=== PATIENT | female | born 1935 | race Hispanic/Latino ===

== ENCOUNTER 2017-09-20 16:57 | Inpatient (IN) | payer MEDICARE ==
[~2017-09-20] VITALS: Ht 152.4 cm; Wt 72.1 kg
[~2017-09-20 16:57] MED LIST: APIDRA SOL100 UNIT/1 SC; CEFDINIR300 MG PO; CHLORZOXAZONE500 MG PO; GABAPENTIN100 MG PO; LANTUS 3ML100 UNITS/ SC; LANTUS 3ML100 UNITS/ SQ; LEVOTHYROXINE100 MC1 PO; LOSARTAN POTASS50 MG PO; NORCO 10-325 T1 EACH PO; NUCYNTA ER100 MG PO; PEPCID20 MG PO; PRAVASTATIN SOD40 MG PO; SENNA LAXATIVE8.6 MG PO; TIZANIDINE HCL2 MG PO
[2017-09-20 18:19] LABS: BILIRUBIN,URINE 3+ (NEGATIVE); KETONES,URINE 1+ (NEGATIVE); LEUKOCYTE ESTERASE ,URINE 2+ (NEGATIVE); URINE UROBILINOGEN 8 mg/dL (0.2 - 1)
--- NOTE | 2017-09-20 18:19 | Diagnostic Imaging Report ---
PROCEDURE: A single AP view of the chest performed at 1747 hrs. COMPARISON: Chest x-ray 09/18/15 INDICATIONS: CHEST PAIN FINDINGS: Lines/tubes: None. Lungs: Diffusely hyperinflated consistent with COPD. There is a new infiltrate in the inferior left lung. There is gaseous distention of the splenic flexure the colon that results in eventration of left diaphragm. No infiltrate in the right lung. The pulmonary vascular markings are prominent. Pleura: There is no pleural effusion or pneumothorax. Heart and mediastinum: The stable cardiomegaly. The pulmonary vascular markings are prominent. Bones: Diffusely demineralized. There is a treated compression deformity of lower thoracic spine/upper lumbar spine. No acute fractures or destructive lesions. IMPRESSION: New left lower lobe airspace opacity suggestive of pneumonia. COPD. Cardiomegaly and pulmonary vascular congestion. Dictated by: Rajeev Santos M.D. on 09/20/2017 at 18:27 Electronically approved by: Rajeev Santos M.D. on 09/20/2017 at 18:27
[2017-09-20] MEDS ORDERED: SUCCINYLCHOLINE 200 MG/10 ML SYR ONE (18:27)
[2017-09-20] MEDS ORDERED: MIDAZOLAM HCL 2 MG/2 ML VIAL ONE (18:27)
[2017-09-20] MEDS ORDERED: ETOMIDATE 2 MG/ML 10 ML INJ IV ONE (18:27)
[2017-09-20 18:31] LABS: BASOPHILS % 0.5 % (0.0-1.0); HEMATOCRIT 41.3 % (34.2-44.1); HEMOGLOBIN 13.3 g/dL (12.0-16.0); LYMPHOCYTES # (AUTO) 0.8 (1.0-3.2); LYMPHOCYTES % 9.7 % (18.0-39.1); MEAN CORPUSCULAR HEMOGLOBIN 28.4 pg (28-32); MEAN CORPUSCULAR HGB CONC 32.2 g/dL (31-35); MEAN CORPUSCULAR VOLUME 88.2 fL (81-99); MONOCYTES # (AUTO) 0.6 (0.2-0.8); MONOCYTES % 7.9 % (4.4-11.3); NEUTROPHILS # (AUTO) 6.4 (2.1-6.9); NEUTROPHILS % 81.5 % (38.7-80.0); PLATELET COUNT 149 x10e3/uL (140-360); RED BLOOD COUNT 4.68 x10e6/uL (3.6-5.1); RED CELL DISTRIBUTION WIDTH 13.7 % (11.7-14.4)
[2017-09-20 18:37] LABS: CLARITY,URINE CLOUDY (CLEAR); COLOR,URINE AMBER (YELLOW); NITRITE,URINE POSITIVE (NEGATIVE); PROTEIN,URINE DIPSTICK 2+ (NEGATIVE)
[2017-09-20 18:40] LABS: INR 0.98; PROTHROMBIN TIME 13.5 seconds (11.9-14.5)
[2017-09-20 18:41] LABS: PARTIAL THROMBOPLASTIN TIME 36.5 seconds (23.8-35.5)
[2017-09-20 18:51] LABS: BACTERIA,URINE MODERATE /HPF; EPITHELIAL CELLS,URINE MODERATE /LPF
[2017-09-20 19:22] LABS: ALBUMIN 3.1 g/dL (3.5-5.0); ALBUMIN/GLOBULIN RATIO 0.8 (0.8-2.0); ANION GAP 31.4 mmol/L (8-16); CALCIUM 8.2 mg/dL (8.4-10.2); CREATININE, SERUM 2.03 mg/dL (0.57-1.11); POTASSIUM 4.4 mmol/L (3.5-5.1)
[2017-09-20 19:29] LABS: CREATINE KINASE MB 3.3 ng/mL (0.00-5.00); TROPONIN I 0.042 ng/mL (0-0.300)
[2017-09-20] MEDS ORDERED: AZITHROMYCIN 500MG/NS 250 ML 250 ML IV STA (23:34)
[2017-09-20] MEDS ORDERED: CEFTRIAXONE SOD 1 GM VIAL IV STA (23:34)
[2017-09-20] MEDS ORDERED: INSULIN DETEMIR 100 UNIT/ML PEN SQ PRN (23:45)
[2017-09-20] MEDS ORDERED: INSULIN REGULAR, HUMAN 3ML VL 100 UNIT in SODIUM CHLORIDE 0.9% 99 ML IV SCH ×2 (23:45)
[2017-09-20] MEDS ORDERED: MAGNESIUM SULF 1GRAM/DEXTROSE 100 ML IV PRN (23:45)
[2017-09-20] MEDS ORDERED: POTASSIUM CHLORIDE 20MEQ/100ML 200 ML IV PRN (23:45)
[2017-09-20] MEDS: DEXTROSE 5%/0.45% SOD CHL 1,000 ML IV SCH (23:56)
[2017-09-21] VITALS (46 sets, daily range): BP systolic 53–125; BP diastolic 30–77
[2017-09-21] MEDS ORDERED: AZITHROMYCIN 500MG/SOD CHL 0.9% 250ML BAG IV SCH
[2017-09-21] MEDS ORDERED: ACETAMINOPHEN 325 MG TAB PO PRN
[2017-09-21] MEDS ORDERED: SODIUM CHLORIDE 0.9% 50ML 100 ML ONE (00:09)
[2017-09-21] MEDS ORDERED: INSULIN REGULAR, HUMAN 100 UNIT/1 ML 3ML VIAL ONE (00:09)
[2017-09-21 00:23] LABS: ANION GAP 33.3 mmol/L (8-16); CALCIUM 8.6 mg/dL (8.4-10.2); CREATININE, SERUM 2.46 mg/dL (0.57-1.11); MAGNESIUM 1.9 MG/DL (1.3-2.1); POTASSIUM 5.3 mmol/L (3.5-5.1)
[2017-09-21] MEDS ORDERED: LORAZEPAM INJ 2 MG/ML VIAL ONE (00:41)
[2017-09-21] MEDS ORDERED: LORAZEPAM INJ 2 MG/ML VIAL IV ONE (00:45)
[2017-09-21] MEDS: CEFTRIAXONE SOD 1 GM VIAL IV SCH (00:54)
[2017-09-21] MEDS: SODIUM CHLORIDE 0.9% 1000ML 1,000 ML IV SCH ×5 (00:54→23:02)
[2017-09-21] MEDS: ALBUTEROL SULF 0.083% NEB SOLN 3 ML NEB NEB SCH ×4 (01:05→16:45)
[2017-09-21] MEDS: IPRATROPIUM BROMIDE 0.02% 2.5 ML NEB NEB SCH ×4 (01:05→19:00)
[2017-09-21] MEDS ORDERED: ASPIRIN 81 MG CHEW TAB PO ONE (02:45)
[2017-09-21] MEDS ORDERED: SODIUM CHLORIDE 0.9% 1000ML 1,000 ML IV ONE ×3 (02:45→18:15)
[2017-09-21 05:12] LABS: CALCIUM 7.7 mg/dL (8.4-10.2); CREATININE, SERUM 2.19 mg/dL (0.57-1.11); MAGNESIUM 1.6 MG/DL (1.3-2.1)
[2017-09-21 05:17] LABS: CREATINE KINASE MB 4.9 ng/mL (0.00-5.00); TROPONIN I 0.034 ng/mL (0-0.300)
[2017-09-21] MEDS ORDERED: POTASSIUM CHLORIDE 20MEQ/100ML 200 ML IV PRN (06:30)
[2017-09-21] MEDS ORDERED: MAGNESIUM SULF 1GRAM/DEXTROSE 100 ML IV PRN (06:30)
[2017-09-21] MEDS: DEXTROSE 5%/0.45% SOD CHL 1,000 ML IV SCH (09:45)
[2017-09-21 11:35] LABS: BASOPHILS % 0.3 % (0.0-1.0); HEMATOCRIT 37.2 % (34.2-44.1); HEMOGLOBIN 12.5 g/dL (12.0-16.0); LYMPHOCYTES % 10.4 % (18.0-39.1); MEAN CORPUSCULAR HEMOGLOBIN 28.7 pg (28-32); MEAN CORPUSCULAR HGB CONC 33.6 g/dL (31-35); MEAN CORPUSCULAR VOLUME 85.3 fL (81-99); MONOCYTES # (AUTO) 0.9 (0.2-0.8); MONOCYTES % 9.8 % (4.4-11.3); NEUTROPHILS # (AUTO) 7.3 (2.1-6.9); NEUTROPHILS % 79.2 % (38.7-80.0); PLATELET COUNT 130 x10e3/uL (140-360); RED BLOOD COUNT 4.36 x10e6/uL (3.6-5.1)
[2017-09-21 12:03] LABS: CREATINE KINASE MB 4.1 ng/mL (0.00-5.00); TROPONIN I 0.046 ng/mL (0-0.300)
[2017-09-21 12:38] LABS: ANION GAP 15.5 mmol/L (8-16); CALCIUM 7.5 mg/dL (8.4-10.2); CREATININE, SERUM 1.64 mg/dL (0.57-1.11); MAGNESIUM 1.7 MG/DL (1.3-2.1); POTASSIUM 3.5 mmol/L (3.5-5.1)
--- NOTE | 2017-09-21 12:59 | History and Physical ---
REASON FOR ADMISSION: 1. DKA. 2. Pneumonia, left sided. 3. UTI. HISTORY OF PRESENT ILLNESS: The patient is an 82-year-old lady who presented to the emergency room critically ill with . She was noted to be in DKA, pneumonia and urinary tract infection. She was being admitted to the ICU for further evaluation from the emergency room. PAST MEDICAL HISTORY: Diabetes, chronic kidney disease, stage 3. MEDICATIONS: See MAR. ALLERGIES: NONE. SOCIAL HISTORY: Nonsmoker and nondrinker. FAMILY HISTORY: Noncontributory. PHYSICAL EXAMINATION VITAL SIGNS: Temperature 98.6, pulse 96, oxygen saturation 100%, respiratory rate 18, blood pressure 126/74. GENERAL: She is very ill-appearing lady lying in bed. Does not communicate very well. NECK: Supple. CARDIOVASCULAR: Regular rate and rhythm. LUNGS: Clear to auscultation bilaterally ABDOMEN: Soft. Good bowel sounds, nontender. No peritoneal signs. EXTREMITIES: No clubbing or cyanosis. NEUROLOGIC: Moves all extremities x4. ASSESSMENT AND PLAN 1. Pneumonia on the left side. Continue with antibiotics. 2. Diabetic ketoacidosis. Continue with IV insulin. Will consult endocrinology. 3. Chronic kidney disease, stage 3. Continue with IV fluids. 4. Urinary tract infection. Continue with antibiotics and await for culture data. Please see hospital chart for full details. TATE FORREST MD Job#: [id number]
[2017-09-21] MEDS ORDERED: INSULIN REGULAR, HUMAN 3ML VL 100 UNIT in SODIUM CHLORIDE 0.45% 100 ML 100 ML IV SCH ×4 (13:32→14:34)
[2017-09-21] MEDS ORDERED: SODIUM CHLORIDE 0.9% 1000ML 1,000 ML IV SCH (13:45)
[2017-09-21] MEDS ORDERED: DEXTROSE 50% SYRINGE 50 ML IV PRN ×2 (13:45→14:45)
[2017-09-21 15:33] LABS: CHOL/HDL RATIO 2.3 (3.0-3.6)
[2017-09-21 15:53] LABS: FREE T4 (FREE THYROXINE) 0.95 ng/dL (0.8-1.8); THYROID STIMULATING HORMONE 1.633 uIU/mL (0.350-4.940)
[2017-09-21 17:42] LABS: ABG BASE EXCESS 13.8 mmol/L (-2 - 3); ABG HCO3 -13 mmol/L (23-28); ABG PCO2 29 mmHg (41-51); ABG PH 7.29 (7.31-7.41); ABG PO2 64 mmHg (80-105)
[2017-09-21] MEDS ORDERED: SODIUM BICARBONATE 8.4% SYRING 50 ML ONE (18:05)
[2017-09-21] MEDS ORDERED: SODIUM BICARBONATE 8.4% INJ 50 ML SYR IV ONE (18:15)
[2017-09-21] MEDS: ACETAMINOPHEN 1000 MG/100 ML IV PRN (19:30)
[2017-09-21] MEDS ORDERED: MIDAZOLAM HCL 25 MG in SODIUM CHLORIDE 0.9% 50ML 45 ML IV PRN (20:00)
[2017-09-21] MEDS: VANCOMYCIN 500MG/NS 0.9% 100ML 100 ML IV SCH (20:00)
[2017-09-21] MEDS ORDERED: MIDAZOLAM HCL 2 MG/2 ML VIAL ONE (20:11)
--- NOTE | 2017-09-21 20:56 | Diagnostic Imaging Report ---
EXAMINATION: CHEST SINGLE (PORTABLE) INDICATION: Intubation. COMPARISON: 09/18/2015 FINDINGS: TUBES and LINES: Interval placement of endotracheal, nasogastric tubes in good position. LUNGS: Lungs are not well inflated. Diffuse central vascular interstitial and alveolar edema. There is mild prominence of the central pulmonary vasculature, consistent with pulmonary venous congestion. PLEURA: Small left pleural effusion. HEART AND MEDIASTINUM: Cardiac size is moderately enlarged. There are atherosclerotic calcifications within the aorta. BONES AND SOFT TISSUES: No acute osseous lesion. Evidence of prior vertebroplasty at the lower thoracic spine Soft tissues are unremarkable. UPPER ABDOMEN: No free air under the diaphragm. IMPRESSION: Findings are consistent with pulmonary edema and a small left pleural effusion, most likely cardiogenic. Endotracheal and nasogastric tubes are in good position Signed by: Dr. Kris Sabillon M.D. on 09/21/2017 8:53 PM
[2017-09-21] MEDS ORDERED: NOREPINEPHRINE BITARTRATE/ NS 250 ML IV PRN (21:00)
[2017-09-21] MEDS: HEPARIN SOD (PORCINE) 5,000 UNIT/ML VIAL SC SCH (21:00)
[2017-09-21] MEDS: SODIUM CHLORIDE 0.9% 250ML IRRIG IR SCH (21:15)
[2017-09-21] MEDS ORDERED: LIDOCAINE HCL 2% LOCAL 20 ML VIAL ONE (22:00)
[2017-09-21] MEDS ORDERED: HEPARIN SOD (PORCINE) 1000 UNIT/ML 30ML ONE (22:00)
[2017-09-21] MEDS ORDERED: HEPARIN SOD/SOD CHLORIDE 1,000 ML ONE (22:00)
[2017-09-21] MEDS: SODIUM CHLORIDE 0.9% IV SCH (22:57)
[2017-09-21] MEDS: SODIUM BICARBONATE 8.4% IV SCH (22:57)
[2017-09-21] MEDS ORDERED: SODIUM CHLORIDE 0.9% 250ML 250 ML ONE (23:24)
[2017-09-21] MEDS: AZITHROMYCIN 500MG/NS 250 ML 250 ML IV SCH (23:26)
[2017-09-22] VITALS (122 sets, daily range): BP systolic 50–136; BP diastolic 28–87
[2017-09-22] MEDS: CEFTRIAXONE SOD 1 GM VIAL IV SCH
[2017-09-22] MEDS: ALBUTEROL SULF 0.083% NEB SOLN 3 ML NEB NEB SCH ×4 (01:00→20:11)
[2017-09-22] MEDS: IPRATROPIUM BROMIDE 0.02% 2.5 ML NEB NEB SCH ×4 (01:00→20:11)
[2017-09-22 01:05] LABS: BASOPHILS % 0.7 % (0.0-1.0); HEMATOCRIT 34.2 % (34.2-44.1); LYMPHOCYTES # (AUTO) 0.7 (1.0-3.2); LYMPHOCYTES % 23.5 % (18.0-39.1); MEAN CORPUSCULAR HEMOGLOBIN 28.8 pg (28-32); MEAN CORPUSCULAR HGB CONC 35.1 g/dL (31-35); MONOCYTES # (AUTO) 0.1 (0.2-0.8); MONOCYTES % 3.6 % (4.4-11.3); NEUTROPHILS % 70.8 % (38.7-80.0); PLATELET COUNT 128 x10e3/uL (140-360); RED BLOOD COUNT 4.17 x10e6/uL (3.6-5.1); RED CELL DISTRIBUTION WIDTH 12.9 % (11.7-14.4)
[2017-09-22 01:17] LABS: ALBUMIN 1.8 g/dL (3.5-5.0); ALBUMIN/GLOBULIN RATIO 0.7 (0.8-2.0); ANION GAP 13.1 mmol/L (8-16); CREATININE, SERUM 1.41 mg/dL (0.57-1.11); MAGNESIUM 1.4 MG/DL (1.3-2.1); PHOSPHORUS 2.9 MG/DL (2.3-4.7); POTASSIUM 3.1 mmol/L (3.5-5.1)
[2017-09-22 01:23] LABS: CALCIUM 6.9 mg/dL (8.4-10.2)
[2017-09-22] MEDS ORDERED: CALCIUM GLUCONATE 10% INJ 4.65 MEQ in SODIUM CHLORIDE 0.9% 50ML 50 ML IV ONE ×2 (01:45→06:30)
[2017-09-22 02:27] LABS: BAND NEUTROPHILS % (MANUAL) 29 %; LYMPHOCYTES % (MANUAL) 29 % (19-48); METAMYELOCYTES % (MANUAL) 4 % (0-0); MONOCYTES % (MANUAL) 4 % (3.4-9.0); NEUTROPHILS % (MANUAL) 34 % (40-74); RBC MORPHOLOGY COMMENT NORMAL
[2017-09-22 02:28] LABS: PLATELET ESTIMATE SLIGHTLY DECREASED; PLATELET MORPHOLOGY COMMENT NORMAL; TOXIC GRANULATION SLIGHT
[2017-09-22 02:30] LABS: CREATINE KINASE MB 6.6 ng/mL (0.00-5.00); TROPONIN I 0.067 ng/mL (0-0.300)
[2017-09-22] MEDS: ACETAMINOPHEN 1000 MG/100 ML IV PRN (04:44)
[2017-09-22] MEDS: SODIUM CHLORIDE 0.9% 250ML IRRIG IR SCH ×6 (05:15→20:00)
[2017-09-22] MEDS: SODIUM CHLORIDE 0.9% 1000ML 1,000 ML IV SCH ×3 (05:47→20:30)
[2017-09-22 05:58] LABS: BASOPHILS % 0.5 % (0.0-1.0); HEMATOCRIT 33.2 % (34.2-44.1); HEMOGLOBIN 11.6 g/dL (12.0-16.0); LYMPHOCYTES # (AUTO) 0.5 (1.0-3.2); LYMPHOCYTES % 25.2 % (18.0-39.1); MEAN CORPUSCULAR HEMOGLOBIN 28.9 pg (28-32); MEAN CORPUSCULAR HGB CONC 34.9 g/dL (31-35); MEAN CORPUSCULAR VOLUME 82.8 fL (81-99); MONOCYTES # (AUTO) 0.1 (0.2-0.8); MONOCYTES % 3.3 % (4.4-11.3); NEUTROPHILS # (AUTO) 1.3 (2.1-6.9); NEUTROPHILS % 58.4 % (38.7-80.0); PLATELET COUNT 118 x10e3/uL (140-360); RED BLOOD COUNT 4.01 x10e6/uL (3.6-5.1); RED CELL DISTRIBUTION WIDTH 12.4 % (11.7-14.4)
[2017-09-22] MEDS: SODIUM CHLORIDE 0.9% IV SCH ×2 (06:11→17:35)
[2017-09-22] MEDS: SODIUM BICARBONATE 8.4% IV SCH ×2 (06:11→17:35)
[2017-09-22 06:14] LABS: ANION GAP 14.4 mmol/L (8-16); CREATININE, SERUM 1.28 mg/dL (0.57-1.11); POTASSIUM 3.4 mmol/L (3.5-5.1)
[2017-09-22 06:16] LABS: CALCIUM 6.7 mg/dL (8.4-10.2)
--- NOTE | 2017-09-22 06:53 | Diagnostic Imaging Report ---
EXAMINATION: CHEST SINGLE (PORTABLE) INDICATION: Intubation COMPARISON: 09/21/2017 FINDINGS: TUBES and LINES: Endotracheal and nasogastric tubes are stable. Interval placement of right IJ central line catheter. LUNGS: Lungs are not well inflated. Worsening perihilar and bibasilar airspace opacities . PLEURA: No pleural effusion or pneumothorax. HEART AND MEDIASTINUM: Cardiac size is mildly enlarged. There are atherosclerotic calcifications within the aorta. BONES AND SOFT TISSUES: No acute osseous lesion. Soft tissues are unremarkable. UPPER ABDOMEN: No free air under the diaphragm. IMPRESSION: Findings are consistent with worsening pulmonary edema/ARDS. Superimposed pneumonia cannot be excluded Signed by: Dr. Kris Sabillon M.D. on 09/22/2017 6:50 AM
[2017-09-22] MEDS: VANCOMYCIN 500MG/NS 0.9% 100ML 100 ML IV SCH ×2 (08:00→20:00)
[2017-09-22 08:09] LABS: ABG HCO3 16 mmol/L (23-28); ABG PCO2 31 mmHg (41-51); ABG PH 7.32 (7.31-7.41); ABG PO2 102 mmHg (80-105)
[2017-09-22] MEDS ORDERED: SODIUM CHLORIDE 0.9% 1000ML 1,000 ML ONE (08:13)
[2017-09-22] MEDS ORDERED: AMIODARONE HCL 150 MG in DEXTROSE 5% 100ML 100 ML IV SCH (08:30)
[2017-09-22] MEDS ORDERED: AMIODARONE HCL 150 MG/100 ML BAG IV ONE (08:30)
[2017-09-22] MEDS ORDERED: AMIODARONE HCL 360MG 200 ML IV PRN (08:45)
[2017-09-22] MEDS: AMIODARONE HCL 900 MG in DEXTROSE 5 % 500ML BOTTLE 500 ML IV SCH (08:59)
[2017-09-22] MEDS ORDERED: SODIUM CHLORIDE 0.9% IV ONE (09:45)
[2017-09-22] MEDS ORDERED: CALCIUM CHLORIDE 10% IV ONE (09:45)
[2017-09-22] MEDS: OSELTAMIVIR PHOSPHATE 75 MG CAP PO SCH ×2 (10:00→18:05)
[2017-09-22] MEDS: PANTOPRAZOLE 40 MG 10ML VIAL IV SCH (10:00)
[2017-09-22] MEDS ORDERED: METOPROLOL TARTRATE INJ 1 MG/ML VIAL IV ONE (10:15)
[2017-09-22] MEDS ORDERED: METOPROLOL TARTRATE INJ 1 MG/ML VIAL ONE (10:15)
[2017-09-22] MEDS ORDERED: ESMOLOL HCL 2500MG/250 ML 250 ML IV PRN (10:15)
[2017-09-22] MEDS ORDERED: ESMOLOL HCL 2500MG/250 ML 250 ML ONE (10:20)
[2017-09-22 10:24] LABS: BAND NEUTROPHILS % (MANUAL) 51 %; LYMPHOCYTES % (MANUAL) 36 % (19-48); METAMYELOCYTES % (MANUAL) 1 % (0-0); MONOCYTES % (MANUAL) 8 % (3.4-9.0); NEUTROPHILS % (MANUAL) 4 % (40-74); PLATELET ESTIMATE ADEQUATE; PLATELET MORPHOLOGY COMMENT NORMAL; RBC MORPHOLOGY COMMENT NORMAL
[2017-09-22] MEDS ORDERED: POTASSIUM CHLORIDE 100 ML IV ONE (10:30)
[2017-09-22] MEDS: HEPARIN SOD (PORCINE) 5,000 UNIT/ML VIAL SC SCH ×2 (10:51→22:06)
[2017-09-22] MEDS ORDERED: VASOPRESSIN 100 UNIT in DEXTROSE 5% 100ML 100 ML IV PRN (11:00)
[2017-09-22] MEDS ORDERED: FENTANYL CITRATE INJ 2,000 MCG in SODIUM CHLORIDE 0.9% 250ML 210 ML IV PRN (11:45)
[2017-09-22] MEDS: DIGOXIN INJ 0.25 MG/ML 2 ML AMP IV SCH ×2 (12:28→18:05)
[2017-09-22] MEDS: SODIUM BICARBONATE 8.4% SYRING 50 ML in SODIUM CHLORIDE 0.45% 1,000 ML IV SCH (13:00)
--- NOTE | 2017-09-22 13:21 | Consultation ---
DATE OF CONSULTATION: September 21, 2017 ENDOCRINE CONSULTATION Thank you very much for referring this patient. This is an 82-year-old lady who was referred to me for evaluation of uncontrolled diabetes mellitus and diabetic ketoacidosis. Most of the history is available from the patient's son. Patient is a known diabetic for almost 10 to 15 years and has been taking insulin long acting and short acting insulin at home. The exact dose is not known. Patient had an upper respiratory tract infection, bronchitis. She reported to her doctor who found her blood sugar to be high and referred her to the emergency room. At the time of admission, her blood sugar was 762. Her anion gap was 26 and BUN and creatinine were 28 and 2.9. Patient also has history of arthritis and bronchitis. She also takes medication for hypertension. There is no history of coronary artery disease or congestive cardiac failure. PHYSICAL EXAMINATION: GENERAL: Today the patient is altered mental status. She is responding to the painful stimulus. VITAL SIGNS: Heart rate is around 78. Blood pressure is 110/70 mmHg. HEENT: Examination essentially unremarkable. Thyroid is palpable. She has bilateral bronchospasm. CARDIAC: Both 1st and 2nd heart sounds. There is no 3rd or 4th heart sound. Ejection sound is grade 2/6. 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 CLINICAL IMPRESSION: 1. Diabetes mellitus type 2 with diabetic ketoacidosis. 2. Bronchitis. 3. History of arthritis. 4. Hypertension. PLAN: The plan at this time is to do a hemoglobin A1c, thyroid function test. She has been started on insulin and IV fluids. Thanks again for referring this patient. I will be following this patient with you. Job#: [id number]
[2017-09-22] MEDS: PIPER-TAZ 3.375 GM 50 ML IV SCH ×2 (16:07→22:05)
--- NOTE | 2017-09-22 18:10 | Consultation ---
DATE OF CONSULTATION: September 21, 2017 She was admitted through the emergency room from doctor's office with aches over the last 3 days, low blood pressure in the doctor's office. She is currently on BiPAP but is not awake. She has history of diabetes, hypertension, hypothyroidism. HOME MEDICATIONS: Pepcid, insulin, Neurontin, losartan, and Levoxyl. PHYSICAL EXAMINATION VITAL SIGNS: Temperature 101.5, blood pressure 97/43. GENERAL: She is currently on BiPAP and is not responding. She is acidotic. LUNGS: Bilateral rhonchi. HEART: Regular rhythm. ABDOMEN: Nontender. EXTREMITIES: Not edematous. IMPRESSION 1. Pneumonia, left lower lobe. 2. Sepsis, possible influenza. 3. Lactic acidosis. PLAN: Mechanical ventilator support to protect the patient's airway. Manage diabetes as per Dr. Oro. Her home medications have included Pepcid, gabapentin, Vicodin, insulin, Levoxyl, losartan, Pravachol, and . Influenza is also a possibility and will check influenza rapid panel. Thank you for this kind referral. Job#: [id number]
[2017-09-23] VITALS (52 sets, daily range): BP systolic 35–136; BP diastolic 21–129
[2017-09-23] MEDS ORDERED: ACETAMINOPHEN 1000 MG/100 ML IV PRN
[2017-09-23] MEDS: DIGOXIN INJ 0.25 MG/ML 2 ML AMP IV SCH
[2017-09-23] MEDS: AMIODARONE HCL 900 MG in DEXTROSE 5 % 500ML BOTTLE 500 ML IV SCH (00:12)
[2017-09-23] MEDS: SODIUM CHLORIDE 0.9% 250ML IRRIG IR SCH ×4 (00:13→11:24)
[2017-09-23] MEDS: AZITHROMYCIN 500MG/NS 250 ML 250 ML IV SCH (00:13)
[2017-09-23] MEDS ORDERED: ACETAMINOPHEN 1000 MG/100 ML 100 ML IV ONE (00:24)
[2017-09-23 00:57] LABS: ABG HCO3 13 mmol/L (23-28); ABG PCO2 35 mmHg (41-51); ABG PH 7.18 (7.31-7.41); ABG PO2 62 mmHg (80-105)
[2017-09-23] MEDS: IPRATROPIUM BROMIDE 0.02% 2.5 ML NEB NEB SCH ×2 (02:30→07:32)
--- NOTE | 2017-09-23 02:37 | Diagnostic Imaging Report ---
EXAMINATION: CHEST SINGLE (PORTABLE) INDICATION: Change in mental status COMPARISON: 09/22/2017 FINDINGS: TUBES and LINES: Endotracheal and nasogastric tubes are stable. Right ht IJ central line catheter is in stable. LUNGS: Lungs are not well inflated. Relatively stable perihilar and bibasilar airspace opacities . PLEURA: No pleural effusion or pneumothorax. HEART AND MEDIASTINUM: Cardiac size is mildly enlarged. There are atherosclerotic calcifications within the aorta. BONES AND SOFT TISSUES: No acute osseous lesion. Soft tissues are unremarkable. UPPER ABDOMEN: No free air under the diaphragm. IMPRESSION: Findings are consistent with stable pulmonary edema/ARDS. Superimposed pneumonia cannot be excluded Signed by: Dr. Kris Sabillon M.D. on 09/23/2017 2:33 AM
[2017-09-23] MEDS: ALBUTEROL SULF 0.083% NEB SOLN 3 ML NEB NEB SCH ×2 (02:55→07:32)
[2017-09-23] MEDS: SODIUM CHLORIDE 0.9% 1000ML 1,000 ML IV SCH ×2 (03:10→08:14)
[2017-09-23] MEDS: SODIUM CHLORIDE 0.9% IV SCH (04:14)
[2017-09-23] MEDS: SODIUM BICARBONATE 8.4% IV SCH (04:14)
--- NOTE | 2017-09-23 04:58 | Consultation ---
DATE OF CONSULTATION: REASON FOR CONSULTATION: SVT and AFib. HISTORY OF PRESENT ILLNESS: Ms. Villatoro is an 82-year-old lady with a past medical history as listed below, who was initially admitted with pneumonia, respiratory failure and sepsis. Patient's heart rate went up into the 200s this morning. She was shocked a few times and started on amio drip. She was initially in SVT and at times went into AFib with rapid ventricular rate. Patient is intubated on a vent. No history can be obtained from the patient. Most of the history is obtained from the nurse, the chart and the family. Patient was on Levophed prior to the event. Her heart rate has slowed down to the low 100s. She is currently in sinus tach. REVIEW OF SYSTEMS: Not obtainable. ALLERGIES: NO KNOWN DRUG ALLERGIES. MEDICATIONS: See list. PAST MEDICAL HISTORY: History of hypertension, history of diabetes mellitus. SOCIAL HISTORY: Does not smoke or drink. FAMILY HISTORY: Noncontributory. PHYSICAL EXAMINATION GENERAL: Moderately built and nourished lady intubated and unresponsive. VITALS: Heart rate is in the 120s, blood pressure is 108/80. HEENT: Atraumatic. Orotracheal tube in place. NECK: No JVD, bruit, thyromegaly, or lymphadenopathy. CARDIOVASCULAR: First and 2nd heart sounds heard. No murmurs, rubs or gallops are appreciated. CHEST: Decreased air entry at the bases. No adventitious sounds appreciated. ABDOMEN: Soft. EXTREMITIES: No edema. LABS: Sodium is 143, potassium is 3.4, chloride 116, bicarb is 16, BUN is 34, creatinine 1.2. Hemoglobin 11.6, hematocrit 33.2, platelets 118,000, and white count is 2.1. EKG shows sinus tach at 130 beats per minute. Rightward axis, PVCs and couplets. Normal intervals. Nonspecific ST-T changes. Initial EKG when she had the rapid rhythm showed supraventricular tachycardia at [address]-depressions in 1, V2-V4 and V6. IMPRESSION 1. Supraventricular tachycardia. 2. Sepsis. 3. Respiratory failure. 4. Pneumonia. 5. Diabetic ketoacidosis. 6. Hypertension. 7. Hypokalemia. 8. Renal insufficiency. PLAN 1. Patient's heart rate is better. She has been started on amiodarone drip. 2. Get echocardiogram to assess LV function and valvular function. 3. Replace electrolytes. 4. Gradually taper and discontinue pressors as tolerated. 5. Further cardiac workup pending clinical course. Discussed my impression and plan of management with the family, and they understand. As always, I appreciate and thank you for this referral. Job#: [id number]
[2017-09-23] MEDS: PIPER-TAZ 3.375 GM 50 ML IV SCH (05:54)
[2017-09-23] MEDS: VANCOMYCIN 500MG/NS 0.9% 100ML 100 ML IV SCH (08:14)
[2017-09-23] MEDS ORDERED: PHENYLEPHRINE 10MG/ML VIAL 40 MG in DEXTROSE 5% 250ML 250 ML IV SCH (09:00)
[2017-09-23 09:20] LABS: BASOPHILS % 0.1 % (0.0-1.0); HEMOGLOBIN 12.4 g/dL (12.0-16.0); LYMPHOCYTES # (AUTO) 0.8 (1.0-3.2); LYMPHOCYTES % 6.7 % (18.0-39.1); MEAN CORPUSCULAR HEMOGLOBIN 28.5 pg (28-32); MEAN CORPUSCULAR HGB CONC 31.8 g/dL (31-35); MONOCYTES # (AUTO) 0.3 (0.2-0.8); MONOCYTES % 2.1 % (4.4-11.3); NEUTROPHILS # (AUTO) 10.6 (2.1-6.9); NEUTROPHILS % 87.5 % (38.7-80.0); PLATELET COUNT 109 x10e3/uL (140-360); RED BLOOD COUNT 4.35 x10e6/uL (3.6-5.1); RED CELL DISTRIBUTION WIDTH 13.9 % (11.7-14.4)
[2017-09-23] MEDS: SODIUM BICARBONATE 8.4% SYRING 50 ML in SODIUM CHLORIDE 0.45% 1,000 ML IV SCH (09:22)
[2017-09-23] MEDS: HEPARIN SOD (PORCINE) 5,000 UNIT/ML VIAL SC SCH (09:22)
[2017-09-23] MEDS: PANTOPRAZOLE 40 MG 10ML VIAL IV SCH (09:22)
[2017-09-23] MEDS: OSELTAMIVIR PHOSPHATE 75 MG CAP PO SCH (09:22)
[2017-09-23 09:23] LABS: MEAN CORPUSCULAR VOLUME 89.7 fL (81-99)
[2017-09-23] MEDS ORDERED: DIGOXIN INJ 0.25 MG/ML 2 ML AMP IV ONE (09:30)
[2017-09-23 09:56] LABS: ALBUMIN 1.5 g/dL (3.5-5.0); ALBUMIN/GLOBULIN RATIO 0.5 (0.8-2.0); ANION GAP 26.9 mmol/L (8-16); CREATININE, SERUM 2.76 mg/dL (0.57-1.11)
[2017-09-23 09:59] LABS: BAND NEUTROPHILS % (MANUAL) 20 %; LYMPHOCYTES % (MANUAL) 17 % (19-48); METAMYELOCYTES % (MANUAL) 3 % (0-0); MONOCYTES % (MANUAL) 4 % (3.4-9.0); MYELOCYTES % (MANUAL) 1 % (0-0); NEUTROPHILS % (MANUAL) 52 % (40-74); NUCLEATED RED BLOOD CELLS 4; PLATELET MORPHOLOGY COMMENT FEW LARGE; PROMYELOCYTES % (MANUAL) 3 % (0-0); RBC MORPHOLOGY COMMENT NORMAL
[2017-09-23 10:00] LABS: PLATELET ESTIMATE ADEQUATE
[2017-09-23 10:03] LABS: CALCIUM 6.8 mg/dL (8.4-10.2); POTASSIUM 6.9 mmol/L (3.5-5.1)
[2017-09-23] MEDS ORDERED: HYDROCORTISONE SOD SUCCINATE 100 MG VIAL IV SCH (14:00)
--- NOTE | 2017-09-24 08:22 | Diagnostic Imaging Report ---
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 Allen Pre-operative diagnosis: Diabetic ketoacidosis, poor IV access Post-operative diagnosis: Diabetic acidosis Conscious Sedation: None The patient's heart rate and pulse oximetry were continuously monitored by the interventional radiology nurse. Blood pressure was monitored at 5 minute intervals. Fluoroscopy time: 0.5 minutes Dose-area Product: 47.7 cGycm2. Contrast used: None Estimated blood loss: Minimal Specimens: None Implants: 7 Mongolian 16 cm triple-lumen central venous catheter Blood products administered: None Condition at completion of procedure: Critical Disposition: Returned to ICU DISCUSSION: Informed consent was obtained and documented in the medical record. The patient was placed in the supine position on the fluoroscopic table. Preliminary sonographic evaluation confirmed patency of the right internal jugular vein, evidenced by compressibility. The right cervical region was then prepped and draped in the standard sterile fashion. 1% lidocaine was infiltrated into the skin and subcutaneous tissues for local anesthesia. Then, under continuous sonographic guidance, an 18-gauge singlewall needle was used to access the right internal jugular vein. A permanent sonographic image was stored in the medical record. A 0.0 3 5-in. wire was advanced into the inferior vena cava under fluoroscopic guidance. The needle was removed over the wire and the tract was dilated. Then, a 7 Mongolian, 16 cm triple-lumen central venous catheter was advanced over the wire to full depth. The wire was removed and the catheter tip was positioned at the superior cavoatrial junction. Each lumen showed adequate bidirectional flow and was flushed with sterile saline. The catheter was secured to the skin with monofilament nylon suture and a sterile dressing was applied. The patient tolerated the procedure well without immediate complication. FINDINGS: Patent right internal jugular vein. IMPRESSION: Successful placement of a right internal jugular central venous catheter under sonographic and fluoroscopic guidance. Signed by: Dr. Ulisses Allen M.D. on 09/24/2017 8:19 AM
== END 2017-09-23 14:00 | disposition expired | DRG 871 ==
LOC: ER 16:57 → ERHOLD 23:59 → ICU 09-21 15:26
PROVIDERS: ADMIT Internal Medicine; ATTEND Internal Medicine
PROC: 0BH17EZ Insertion of Endotracheal Airway into Trachea, Via Natural or Artificial Opening (ICD-10-PCS; principal; 2017-09-21)
PROC: 5A1945Z Respiratory Ventilation, 24-96 Consecutive Hours (ICD-10-PCS; 2017-09-21)
PROC: 02HV33Z Insertion of Infusion Device into Superior Vena Cava, Percutaneous Approach (ICD-10-PCS; 2017-09-21)
DX: A41.9 Sepsis, unspecified organism (principal); R65.21 Severe sepsis with septic shock; J96.90 Respiratory failure, unspecified, unspecified whether with hypoxia or hypercapnia; N17.9 Acute kidney failure, unspecified; J18.9 Pneumonia, unspecified organism; E11.10 Type 2 diabetes mellitus with ketoacidosis without coma; E13.10 Other specified diabetes mellitus with ketoacidosis without coma; N18.3 Chronic kidney disease, stage 3 (moderate); E11.22 Type 2 diabetes mellitus with diabetic chronic kidney disease; E87.2 Acidosis; I48.91 Unspecified atrial fibrillation; E87.6 Hypokalemia; Z79.01 Long term (current) use of anticoagulants; J40 Bronchitis, not specified as acute or chronic; I12.9 Hypertensive chronic kidney disease with stage 1 through stage 4 chronic kidney disease, or unspecified chronic kidney disease; Z79.4 Long term (current) use of insulin
CPT/HCPCS: 36415; 36556; 36600; 71010; 74470; 76937; 77001; 80048; 80053; 80061; 81001; 82140; 82550; 82553; 82805; 82948; 83036; 83605; 83735; 83880; 84100; 84439; 84443; 84484; 85025; 85610; 85730; 87040; 87070; 87086; 87205; 87400; 87493; 93005; 93306; 94002; 94003; 94640; 94660; 99285; C1751; J0456; J0610; J0696; J1160; J1644; J2001; J2060; J2250; J2370; J2543; J3370; J3475; J7030; J7050; J7799